=== PATIENT | male | born 1995 | race Caucasian/White ===

== ENCOUNTER 2020-02-29 13:44 | Emergency (ER) | payer BC ==
[~2020-02-29] VITALS: Ht 185.4 cm; Wt 114.3 kg
[2020-02-29 13:49] VITALS: Ht 185.4 cm; Wt 114.3 kg
[2020-02-29 15:17] VITALS: BP 137/85
== END 2020-02-29 15:17 | disposition home or self-care (01) ==
LOC: ED 13:44
DX: M62.830 Muscle spasm of back (principal); Z98.890 Other specified postprocedural states
CPT/HCPCS: J1885